=== PATIENT | male | born 1955 | race Caucasian/White ===

== ENCOUNTER 2021-06-21 21:57 | Emergency (ER) | payer MEDICARE, SELFPAY ==
[2021-06-21 22:02] VITALS: BP 172/74; PULSE 57; RESP 20; TEMP 36.2; O2SAT 100; BMI 25.8
[2021-06-21 22:31] LABS: COVID19 -Nasal RAPID Negative (Negative)
--- NOTE | 2021-06-22 00:10 | ED.URI ---
HPI - URI/Sore Throat General Chief Complaint: Upper Respiratory Symptoms Stated Complaint: COUGH SOB RUNNY NOSE Time Seen by Provider: 06/22/21 00:03 Source: patient Mode of arrival: Ambulatory Limitations: no limitations History of Present Illness HPI Narrative: Patient here complains 1 month of itchy watery eyes runny nose and dry cough. Past few days shortness of breath only with laying flat. No history of congestive heart failure. No limb swelling. No weight gain. Patient here visiting from [place]. Returns back home in 2 weeks. Denies any COVID exposure. Related Data Previous Rx's Medication Instructions Recorded albuterol sulfate 90 mcg/actuation 2 inhalation INHALATION QID PRN 06/22/21 aerosol inhaler (Ventolin HFA) #6.7 gram benzonatate 100 mg capsule 100 mg PO TID PRN #20 cap 06/22/21 fexofenadine 60 mg tablet (Suzie 60 mg PO BID #30 tab 06/22/21 Allergy) fluticasone propionate 50 1 spray INTRANASAL DAILY #16 g 06/22/21 mcg/actuation nasal spray,suspension (Flonase Allergy Relief) methylprednisolone 4 mg tablets in See Rx Instructions .ROUTE 06/22/21 a dose pack (Medrol (Toni)) .COMPLEX #21 each Allergies Allergy/AdvReac Type Severity Reaction Status Date / Time No Known Drug Allergies Allergy Verified 06/21/21 22:08 Review of Systems Review of Systems Narrative: GENERAL: Denies chills, fatigue, malaise, fever, sweats. HEENT: Denies sinus pain, ear pain, sore throat, complains of runny nose and congestion and watery eyes RESPIRATORY: Complains dyspnea, cough CARDIOVASCULAR: Denies chest pain, palpitations GASTROINTESTINAL: Denies nausea, vomiting, abdominal pain : Denies dysuria, frequency, hematuria MUSCULOSKELETAL: denies muscle or bony pain SKIN: Denies rash, skin lesions NEUROLOGIC: Denies weakness, numbness ROS Unobtainable: All systems reviewed & are unremarkable except as noted in HPI and below Patient History Social History Smoking Status: Former smoker Smoking Status: Former smoker alcohol intake frequency: 0-2 drinks per day Substance Use Type: does not use Exam Narrative Exam Narrative: GENERAL: in no distress, not toxic not dyspneic HEAD: Normocephalic. EYES: Pupils equal round No scleral icterus. No injection no discharge ENT: Mucous membranes moist. There is bilateral nasal mucosa edema. NECK: Trachea midline. CARDIOVASCULAR: Regular rate and rhythm without murmurs RESPIRATORY: Clear to auscultation. Breath sounds equal bilaterally. No wheezes, rales, or rhonchi. Speaking full sentences GASTROINTESTINAL: Abdomen soft, non-tender EXTREMITIES: No gross deformities. BACK: No flank tenderness. NEURO: AOx4. SKIN: Warm and dry PSYCH: Not anxious, is cooperative Initial Vital Signs Initial Vital Signs: Vital Signs Temperature 97.1 F L 06/21/21 22:02 Pulse Rate 57 L 06/21/21 22:02 Respiratory Rate 20 06/21/21 22:02 Blood Pressure 172/74 H 06/21/21 22:02 Pulse Oximetry 100 06/21/21 22:02 Course Course Course Narrative: No new issues during course of stay Orders Ordered: ED Orders 06/21/21 22:08 COVID19 -Nasal swab/Pre-Proc Stat Discontinued Medications Albuterol (Albuterol Hfa Mdi 60 Puff/8 Gm Inhaler) 2 puff INH NOW ONE Stop: 06/22/21 00:10 Last Admin: 06/22/21 00:31 Dose: 2 puff Documented by: RIGOBERTO Benzonatate (Benzonatate 100 Mg Capsule) 100 mg PO NOW ONE Stop: 06/22/21 00:10 Last Admin: 06/22/21 00:17 Dose: 100 mg Documented by: RIGOBERTO Prednisone (Prednisone 20 Mg Tablet) 40 mg PO NOW ONE Stop: 06/22/21 00:10 Last Admin: 06/22/21 00:17 Dose: 40 mg Documented by: RIGOBERTO Reevaluation(s) Reevaluation #1: Reviewed results with patient, agrees no chest x-ray at this time. Has clear lung sounds 100% room air. Will treat clinically for likely allergic rhinitis/seasonal allergies Time: 00:23 Vital Signs Vital signs: Vital Signs - 8 hr 06/21/21 22:02 06/22/21 00:28 Temperature 97.1 F L Pulse Rate 57 L 63 Respiratory Rate 20 15 Blood Pressure 172/74 H Pulse Oximetry 100 98 MDM - URI/Sore Throat Differential Diagnosis Differential diagnosis: Likely upper respiratory infection, viral infection, bronchitis and other (Allergic rhinitis) Lab Data Labs: Lab Results 06/21/21 Range/Units 22:08 SARS-CoV-2 (PCR) Negative (Negative) MDM Narrative Medical decision making narrative: Appropriate for discharge home. No imaging indicated. 100% room air. Clear lung sounds speaking full sentences. Clinically not CHF. Clear lung sounds. No history of heart lung disease. No chest pain. Return precautions reviewed with him. Agrees with treatment plan and follow-up with primary care in 2 weeks when returns back to [place]. Discharge Plan Departure Patient Disposition: Home Clinical Impression: Bronchitis Allergic rhinitis Qualifiers: Allergic rhinitis trigger: unspecified Allergic rhinitis seasonality: unspecified Qualified Code(s): J30.9 - Allergic rhinitis, unspecified Instructions: DI for Acute Bronchitis, DI for Allergic Rhinitis Activity Restrictions/Additional Instructions: See your family doctor in 2 weeks when you return to [place]. Continue steroid pack tomorrow. Use inhaler 2 puffs every 4 hours as needed for coughing. Return if worsening questions or concerns. You may be developing seasonal allergies. Prescriptions: New benzonatate 100 mg capsule 100 mg PO TID PRN (Reason: cough) Qty: 20 RF: 0 methylprednisolone [Medrol (Toni)] 4 mg tablets,dose pack See Rx Instructions .ROUTE .COMPLEX Qty: 21 RF: 0 albuterol sulfate [Ventolin HFA] 90 mcg/actuation HFA aerosol inhaler 2 inhalation INHALATION QID PRN (Reason: shortness of breath or wheezing) Qty: 6.7 RF: 0 fexofenadine [Suzie Allergy] 60 mg tablet 60 mg PO BID Qty: 30 RF: 0 fluticasone propionate [Flonase Allergy Relief] 50 mcg/actuation spray,suspension 1 spray intranasal DAILY Qty: 16 RF: 0
[2021-06-22] MEDS: predniSONE 20 MG TABLET 40 MG PO (00:17)
[2021-06-22] MEDS: BENZONATATE 100 MG CAPSULE PO (00:17)
[2021-06-22 00:28] VITALS: PULSE 63; RESP 15; O2SAT 98
[2021-06-22] MEDS: ALBUTEROL HFA MDI 60 PUFF/8 GM INHALER INH (00:31)
== END 2021-06-22 00:39 | disposition home or self-care (01) ==
PROVIDERS: Emergency Provider Emergency Medicine
DX: J40 Bronchitis, not specified as acute or chronic (principal); J30.9 Allergic rhinitis, unspecified; Z20.822 Contact with and (suspected) exposure to COVID-19
CPT/HCPCS: 87635; 94640; 99283; C9803; A9270